=== PATIENT | male | born 1980 | race African-American/Black ===

== ENCOUNTER 2021-01-20 18:48 | Observation (INO) ==
[2021-01-20] MEDS ORDERED: SODIUM CHLORIDE 0.9% 1000ML 1,000 ML IV STA (20:10)
[2021-01-20] MEDS ORDERED: ONDANSETRON INJ 2 MG/ML 2 ML VIAL IV STA (20:10)
[2021-01-20 20:17] LABS: Basophils # (auto) 0.02 K/uL (0-0.2); Basophils % (auto) 0.2 %; Eosinophils % (auto) 1.1 %; Hematocrit (blood only) 46.2 % (42-52); Hemoglobin 15.7 g/dL (14.0-18.0); Immature Granulocytes # (auto) 0.02 K/uL (0.00-0.02); Immature Granulocytes % (auto) 0.2 %; Lymphocytes # (auto) 2.47 K/uL (1.2-3.4); Lymphocytes % (auto) 27.6 %; Mean Corpuscular Volume 88.2 fL (80-100); Mean Platelet Volume 10.1 fL (7.4-10.4); Monocytes # (auto) 0.81 K/uL (0.11-0.59); Monocytes % (auto) 9.1 %; Neutrophils # (auto) 5.52 K/uL (1.4-6.5); Neutrophils % (auto) 61.8 %; Platelet Count 181 K/uL (130-400); RDW Coefficient of Variation 13.2 % (11.5-14.5); RDW Standard Deviation 42.7 fL (36.4-46.3); Red Blood Count 5.24 M/uL (4.7-6.1); White Blood Count 8.94 K/uL (4.8-10.8)
[2021-01-20 20:29] LABS: Albumin Level 3.6 gm/dl (3.4-5.0); BUN Creatinine Ratio 7.8 (10-20); Calcium 9.2 mg/dl (8.5-10.1); Creatinine Clr Calc Pharmacy 92.3 ml/min; Est GFR (African American) 78.6 ml/min; Est GFR (Non-African American) 67.8 ml/min; Potassium 3.6 mmol/L (3.5-5.1)
[2021-01-20 20:31] LABS: Albumin Globulin Ratio 0.9 (0.9-2); Bilirubin,Total 0.8 mg/dl (0.2-1); Globulin 3.9 gm/dl (2.5-4.0); Total Protein 7.5 gm/dl (6.4-8.2)
[2021-01-20] MEDS ORDERED: OPTIRAY 320 100ml IV ONE (20:43)
[2021-01-20] MEDS ORDERED: diphenhydrAMINE 50 MG/ML VIAL IV STA (21:17)
[2021-01-20] MEDS ORDERED: FAMOTIDINE 20MG IV PUSH 20 MG/5 ML SYR IV STA (21:17)
[2021-01-20] MEDS ORDERED: methylPREDNISolone 125 MG/2 ML VIAL IV STA (21:17)
[2021-01-20] MEDS ORDERED: diphenhydrAMINE 50 MG/ML VIAL ONE (21:18)
[2021-01-20] MEDS ORDERED: FAMOTIDINE 20MG/5ML IV PUSH IV ONE (21:18)
[2021-01-20] MEDS ORDERED: methylPREDNISolone 125 MG/2 ML VIAL ONE (21:18)
[2021-01-20] MEDS ORDERED: EPINEPHrine INJ 1 MG/ML AMP IM STA (21:20)
[2021-01-20 21:58] LABS: Appearance Urine Clear (Clear); Bilirubin Urine Negative (Negative); Blood Urine Negative (Negative); Color Urine Yellow; Glucose Urine UA Negative (Negative); Ketones Urine Negative (Negative); Leukocyte Esterase Urine Negative (Negative); Nitrite Urine Negative (Negative); Protein Urine Negative (Negative); Specific Gravity Urine 1.018 (1.000-1.030); Urobilinogen Urine Negative (Negative)
[2021-01-20] MEDS ORDERED: AMPICILLIN/SULBACTAM SOD 3,000 MG in 0.9 % SODIUM CHLORIDE 100 ML IV STA (23:30)
--- NOTE | 2021-01-20 23:40 | Emergency Department Note ---
Impression & Plan Diverticulitis, Anaphylaxis ED Provider Note INFORMANT: Patient ED PROVIDER(S): Garry Dee MD CHIEF COMPLAINT: Right-sided abdominal pain PLAN: Disposition: Admitted Condition: Good Outpatient prescription management: none Referral: None MEDICAL DECISION MAKING: Patient presented because of right-sided abdominal pain. Blood work was obtained and was unremarkable. Patient declined analgesia. He was did and given Zofran initially because he had nausea and he did feel better with this. The patient underwent CT imaging and it revealed right sided cecal diverticulitis without perforation or abscess. Unfortunate the patient had an anaphylactic reaction to the IV dye. He has never had any reactions like this before. The patient was not allergic to any medications or anything else. He was attended to promptly. The patient was given IV Benadryl, IV Pepcid, and IV Solu-Medrol. He was noted to have moderate swelling of the uvula. He was given a dose of IM epinephrine. He was monitored. He has improved somewhat but still has some mild uvular swelling and congestion. His diffuse urticaria has improved. Facial swelling has diminished. He will need to be observed overnight in the hospital secondary to his severe reaction. Patient was given IV Unasyn for his diverticulitis. [facility] patient ER admitted for further management. Triage Nursing notes reviewed and agree them. Vital Signs: reviewed and remarkable for no significant abnormalities Differential diagnosis: Appendicitis, testicular torsion, infections, diverticulitis, UTI, obstruction, mesenteric ischemia, aortic pathology, inflammatory bowel disease, renal colic, PUD, pancreatitis, biliary pathology, hernia, volvulus, constipation, as well as other pathologies. Diagnostics interpreted by me: ECG: none Cardiac Monitoring: Cardiac monitoring ordered by me: The patient was placed on continuous cardiac monitoring and observed. It revealed a normal sinus rhythm at 95 beats per minute without ectopy or evidence of dysrhythmia. Imaging studies: CT imaging consistent with cecal diverticulitis. HPI: The patient is a 40 year old male who presents to the Emergency Room with complaints of right-sided abdominal pain. This started this morning and is persisting. The patient also notes the following associated symptoms, nausea. The patient has found no relieving factors. Current pain is rated as 5/10. No prior history of the same. Pt denies LOC, headache, fevers, chills, diaphoresis, visual changes, neck pain, chest pain, breathing difficulties, vomiting, back pain, melena, hematochezia, urinary symptoms, numbness, weakness, lymphadenopathy, rash, or other complaints. ROS: See above HPI for pertinent positives & negatives. A total of 10 systems reviewed and were otherwise negative. PAST MEDICAL HISTORY:See Below , prostate hypertrophy PAST SURGICAL HISTORY:See Below, hernia repair FAMILY HISTORY:See Below SOCIAL HISTORY:See Below, smoker HOME MEDICATIONS:See Below ALLERGIES:See Below VITALS:See Below PHYSICAL EXAMINATION: GENERAL: Awake, alert, well-appearing, in no distress HENT: Normocephalic, atraumatic. Oropharynx unremarkable. EYES: Normal conjunctiva. Sclera non-icteric. NECK: Inspection normal. Non-tender. Supple. No nuchal rigidity. FROM. No masses. RESPIRATORY: Clear to auscultation. No wheezes. No rales. Normal respiratory effort. CARDIAC: Normal rate. Normal rhythm. No murmurs. No rubs. Extremities warm and well perfused. Pulses equal. No JVD. GI: Soft, non-distended. Right lower quadrant tenderness to palpation. No rebou nd or guarding. No masses. RECTAL: Deferred. MUSCULOSKELETAL: Atraumatic. Chest examination reveals no tenderness. The back is symmetrical on inspection without obvious abnormality. There is no CVA te nderness to palpation. No joint edema. LOWER EXTREMITIES: Calves are equal size bilaterally and non-tender. No edema. No discoloration. NEURO: Normal sensorium. No sensory or motor deficits noted. SKIN: No rash or jaundice noted. CRITICAL CARE: I have personally spent greater than 50 minutes of critical care time in the direct management of this patient. This includes bedside care, interpretation of diagnostic studies, and testing, discussion with consultants, patient, and family members, and other required patient management activities. These minutes are in excess of all separately billable procedures. Garry Dee MD Past Med/Surg History Social History Smoking Status: Current every day smoker Preferred Language: Yoruba Feels Safe at Home: Yes Allergies Allergies Allergy/AdvReac Type Severity Reaction Status Date / Time Iodinated Contrast Media Allergy Severe Anaphylaxis Verified 01/20/21 21:35 Home Meds Home Medications Medication Instructions Recorded Confirmed Super Beta Prostate 1 tab PO QAM 01/20/21 01/20/21 multivit,calc,mins-folic 240 1 tab PO QAM 01/20/21 01/20/21 mcg-vit K1 30 mcg-lycopene 300 mcg tablet (One-A-Day Men's Complete) tamsulosin 0.4 mg capsule (Flomax) 0.4 mg PO HS 01/20/21 01/20/21 Results & Data (ED) Vital Signs Vital Signs - 24 hr 01/20/21 19:23 01/20/21 21:15 01/20/21 21:30 Temperature 36.4 C L Temperature Source Temporal Artery Scan Pulse Rate 95 H 113 H 118 H Respiratory Rate 18 21 23 Respiratory Effort / Characteristics Non-Labored Spontaneous Respiratory Depth Normal Respiratory Pattern Regular Blood Pressure 148/96 H 111/58 L 115/84 Blood Pressure Mean 113 75 94 Blood Pressure Position Sitting Pulse Oximetry 98 97 95 Oxygen Delivery Method Room Air Sepsis Recent Fever Within 48 Hours No Sepsis New/Unexplained Change in Mental Status N/A Sepsis Action Taken by Nursing No Action Required 01/20/21 22:00 01/20/21 22:30 Temperature Temperature Source Pulse Rate 100 H 105 H Respiratory Rate 23 15 Respiratory Effort / Characteristics Respiratory Depth Respiratory Pattern Blood Pressure 149/84 H 163/86 H Blood Pressure Mean 105 111 Blood Pressure Position Pulse Oximetry 93 95 Oxygen Delivery Method Sepsis Recent Fever Within 48 Hours Sepsis New/Unexplained Change in Mental Status Sepsis Action Taken by Nursing Laboratory Data Result diagrams: 01/20/21 19:50 01/20/21 19:50 Lab Results 01/20/21 01/20/21 01/20/21 Range/Units 19:50 19:50 21:53 WBC 8.94 (4.8-10.8) K/uL RBC 5.24 (4.7-6.1) M/uL Hgb 15.7 (14.0-18.0) g/dL Hct 46.2 (42-52) % MCV 88.2 (80-100) fL MCH 30.0 (25-34) pg MCHC 34.0 (32-36) g/dL RDW Std Deviation 42.7 (36.4-46.3) fL RDW Coeff of Nata 13.2 (11.5-14.5) % Plt Count 181 (130-400) K/uL MPV 10.1 (7.4-10.4) fL Immature Gran % (Auto) 0.2 % Neut % (Auto) 61.8 % Lymph % (Auto) 27.6 % [place] % (Auto) 9.1 % Eos % (Auto) 1.1 % Baso % (Auto) 0.2 % Neut # (Auto) 5.52 (1.4-6.5) K/uL Lymph # (Auto) 2.47 (1.2-3.4) K/uL [place] # (Auto) 0.81 H (0.11-0.59) K/uL Eos # (Auto) 0.10 (0-0.5) K/uL Baso # (Auto) 0.02 (0-0.2) K/uL Immature Gran # (Auto) 0.02 (0.00-0.02) K/uL Sodium 140 (136-145) mmol/L Potassium 3.6 (3.5-5.1) mmol/L Chloride 106 (98-107) mmol/L Carbon Dioxide 29 (21-32) mmol/L Anion Gap 6.0 (3-11) BUN 10 (7-18) mg/dl Creatinine 1.30 (0.6-1.4) mg/dl Est Cr Clr Drug Dosing 92.3 ml/min Est GFR ( Amer) 78.6 ml/min Est GFR (Non-Af Amer) 67.8 ml/min BUN/Creatinine Ratio 7.8 L (10-20) Glucose 92 (70-99) mg/dl Calcium 9.2 (8.5-10.1) mg/dl Total Bilirubin 0.8 (0.2-1) mg/dl AST 15 (15-37) U/L ALT 28 (12-78) U/L Alkaline Phosphatase 86 (45-117) U/L Total Protein 7.5 (6.4-8.2) gm/dl Albumin 3.6 (3.4-5.0) gm/dl Globulin 3.9 (2.5-4.0) gm/dl Albumin/Globulin Ratio 0.9 (0.9-2) Lipase 192 (73-393) U/L Urine Color Yellow Urine Appearance Clear (Clear) Urine pH 6.0 (4.5-7.5) Ur Specific [place] 1.018 (1.000-1.030) Urine Protein Negative (Negative) Urine Glucose (UA) Negative (Negative) Urine Ketones Negative (Negative) Urine Blood Negative (Negative) Urine Nitrite Negative (Negative) Urine Bilirubin Negative (Negative) Urine Urobilinogen Negative (Negative) Ur Leukocyte Esterase Negative (Negative) Administered Medications Discontinued Medications Diphenhydramine HCl (Diphenhydramine 50 Mg/Ml Vial) 50 mg IV NOW STA Stop: 01/20/21 21:18 Last Admin: 01/20/21 21:19 Dose: 50 mg Documented by: [id number] Diphenhydramine HCl (Diphenhydramine 50 Mg/Ml Vial) Confirm Administered Dose 50 mg .ROUTE .STK-MED ONE Stop: 01/20/21 21:19 Last Admin: 01/20/21 21:32 Dose: Not Given Documented by: [id number] Epinephrine HCl (Epinephrine Inj 1 Mg/Ml Amp) 0.3 mg IM NOW STA Stop: 01/20/21 21:21 Last Admin: 01/20/21 21:23 Dose: 0.3 mg Documented by: [id number] Famotidine (Famotidine 20mg/5ml Iv Push) Confirm Administered Dose 20 mg IV .STK-MED ONE Stop: 01/20/21 21:19 Last Admin: 01/20/21 21:32 Dose: Not Given Documented by: [id number] Sodium Chloride (Nss 1000ml) 1,000 mls @ 999 mls/hr IV .Q1H1M STA Stop: 01/20/21 21:10 Last Infusion: 01/20/21 21:21 Dose: 0 mls/hr Documented by: [id number] Admin: 01/20/21 20:20 Dose: 999 mls/hr Documented by: [id number] Famotidine (Pepcid 20mg Iv Push) 20 mg in 5 mls @ 2.5 mls/min IV NOW STA Stop: 01/20/21 21:18 Last Admin: 01/20/21 21:21 Dose: 2.5 mls/min Documented by: [id number] Ioversol (Optiray 320 100ml) 94 ml IV ONCE ONE Stop: 01/20/21 20:44 Last Admin: 01/20/21 20:43 Dose: 94 ml Documented by: [id number] Methylprednisolone (Methylprednisolone 125 Mg/2 Ml Vial) 125 mg IV NOW STA Stop: 01/20/21 21:18 Last Admin: 01/20/21 21:20 Dose: 125 mg Documented by: [id number] Methylprednisolone (Methylprednisolone 125 Mg/2 Ml Vial) Confirm Administered Dose 125 mg .ROUTE .STK-MED ONE Stop: 01/20/21 21:19 Last Admin: 01/20/21 21:32 Dose: Not Given Documented by: [id number] Ondansetron HCl (Ondansetron Inj 2 Mg/Ml 2 Ml Vial) 4 mg IV NOW STA Stop: 01/20/21 20:11 Last Admin: 01/20/21 20:20 Dose: 4 mg Documented by: [id number] Discharge Plan Visit Data Chief Complaint: Abdominal Pain Stated Complaint: STOMACH CRAMPS ON RIGHT SIDE ED Provider: Garry Dee Discharge Problem: Diverticulitis, Anaphylaxis Forms Stand Alone Forms: [facility] Prescriptions Prescriptions: No Action tamsulosin [Flomax] 0.4 mg capsule 0.4 mg PO HS RF: 0 One-A-Day Men's Complete 240 mcg-30 mcg- 300 mcg Tablet 1 tab PO QAM RF: 0 Super Beta Prostate 1 tab PO QAM RF: 0 Referrals Referrals: Idris Wei MD [Primary Care Provider] -
[2021-01-21 00:18] LABS: Magnesium 2.3 mg/dl (1.8-2.4); Thyroid Stimulating Hormone 0.868 uIu/ml (0.300-4.500)
--- NOTE | 2021-01-21 00:32 | History & Physical Report ---
Date of Service January 21, 2021 Assessment & Plan (1) Hypotension: Plan: Secondary to anaphylaxis from IV contrast dye Other symptoms from hypersensitivity reaction have improved post intervention at the ER. Right-sided diverticulitis on initial CT read No prior episodes as per patient, patient not septic BPH on Flomax Ongoing tobacco abuse PCU IVF Monitor for recurrent upper airway obstruction/biphasic anaphylaxis IM epinephrine, antihistaminic as needed Clear liquids, Zosyn for diverticulitis Outpatient GI consult for diverticulitis Nicotine replacement therapy as needed DVT prophylaxis. Lovenox subcu Full code Text document was generated using [employer] voice recognition software. It may contain grammatical or spelling errors. Kindly contact undersigned for clarification of any documentation item in question. History of Present Illness Chief Complaint: Abdominal pain Primary Care Provider: Idris Wei MD History obtained from patient, family, and records. Medical history significant for BPH, ongoing tobacco abuse. Yesterday morning patient woke up with achy right-sided pain with nausea symptoms. No fever, no chills. No constipation/diarrhea symptoms. Patient brought to the ER by last night. IV dye administered for CT abdomen pelvis study. Nausea/emesis symptoms following CAT scan. Patient noted sore throat/throat tightness, shortness of breath without chest pain or cough symptoms. Patient later noted to have facial swelling, eyelid puffiness, and hives. No prior history. IM epinephrine; IV Benadryl, Famotidine, Solu-Medrol for anaphylaxis. Unasyn given for diverticulitis on CT. Patient currently feeling much better. Facial swelling and hives resolved. SBP currently 90s. Medical History as above 2017 colonoscopy showed hyperplastic polyps Surgical History : Hernia surgery, subcutaneous fistula surgery Family History : Prostate cancer Personal/Social history : 3 cigarettes a day, occasional EtOH intake, [employer] employee Allergies Allergy/AdvReac Type Severity Reaction Status Date / Time Iodinated Contrast Media Allergy Severe Anaphylaxis Verified 01/20/21 21:35 Home Medications Medication Instructions Recorded Confirmed Type Super Beta Prostate 1 tab PO QAM 01/20/21 01/20/21 History multivit,calc,mins-folic 240 1 tab PO QAM 01/20/21 01/20/21 History mcg-vit K1 30 mcg-lycopene 300 mcg tablet (One-A-Day Men's Complete) tamsulosin 0.4 mg capsule (Flomax) 0.4 mg PO HS 01/20/21 01/20/21 History Past Med/Surg History Social History Smoking Status: Current some day smoker Hx Alcohol Use: Yes Alcohol type: beer and hard liquor Hx Substance Use: No Preferred Language: Beninese Communication Ability: Effective Contracts Paralegal Required: No Beliefs That Will Affect Care: None Current Living Situation: Spouse Other Information That Helps Us Care for You: No Feels Safe at Home: Yes Safety Concerns: Feels Safe At This Time Assistive Devices: Glasses Review of Systems Review of Systems: As per HPI, all 10 systems reviewed, all other ROS negative Physical Exam Physical Exam: GENERAL: Comfortable, obese, voice slightly muffled, no respiratory distress SKIN: Normal color, warm HEENT: Alopecia, [place] palpebral conjunctivae, no ptosis, dry buccal mucosa, mini mal pharyngeal wall congestion NECK : Supple, no tenderness CHEST : CTA, no tenderness HEART : RRR, no obvious murmurs ABDOMEN: Some distention, right-sided abdominal tenderness EXTREMITIES : No LE swelling/tenderness, no other conspicuous deformities noted NEUROLOGIC : Coherent, no facial asymmetry, no other gross focality Results & Data Results & Data ([facility]) Vital Signs (Past 12 Hours) Vital Signs Temp Pulse Resp BP Pulse Ox 01/21/21 00:00 94 H 21 92/63 L 95 01/20/21 23:30 95 H 19 122/72 94 01/20/21 22:30 105 H 15 163/86 H 95 01/20/21 22:00 100 H 23 149/84 H 93 01/20/21 21:30 118 H 23 115/84 95 01/20/21 21:15 113 H 21 111/58 L 97 01/20/21 19:23 36.4 C L 95 H 18 148/96 H 98 Laboratory Results Laboratory Results WBC 8.94 K/uL (4.8-10.8) 01/20/21 19:50 RBC 5.24 M/uL (4.7-6.1) 01/20/21 19:50 Hgb 15.7 g/dL (14.0-18.0) 01/20/21 19:50 Hct 46.2 % (42-52) 01/20/21 19:50 MCV 88.2 fL (80-100) 01/20/21 19:50 MCH 30.0 pg (25-34) 01/20/21 19:50 MCHC 34.0 g/dL (32-36) 01/20/21 19:50 RDW Std Deviation 42.7 fL (36.4-46.3) 01/20/21 19:50 RDW Coeff of Nata 13.2 % (11.5-14.5) 01/20/21 19:50 Plt Count 181 K/uL (130-400) 01/20/21 19:50 MPV 10.1 fL (7.4-10.4) 01/20/21 19:50 Immature Gran % (Auto) 0.2 % 01/20/21 19:50 Neut % (Auto) 61.8 % 01/20/21 19:50 Lymph % (Auto) 27.6 % 01/20/21 19:50 [place] % (Auto) 9.1 % 01/20/21 19:50 Eos % (Auto) 1.1 % 01/20/21 19:50 Baso % (Auto) 0.2 % 01/20/21 19:50 Neut # (Auto) 5.52 K/uL (1.4-6.5) 01/20/21 19:50 Lymph # (Auto) 2.47 K/uL (1.2-3.4) 01/20/21 19:50 [place]ie # (Auto) 0.81 K/uL (0.11-0.59) H 01/20/21 19:50 Eos # (Auto) 0.10 K/uL (0-0.5) 01/20/21 19:50 Baso # (Auto) 0.02 K/uL (0-0.2) 01/20/21 19:50 Immature Gran # (Auto) 0.02 K/uL (0.00-0.02) 01/20/21 19:50 Sodium 140 mmol/L (136-145) 01/20/21 19:50 Potassium 3.6 mmol/L (3.5-5.1) 01/20/21 19:50 Chloride 106 mmol/L (98-107) 01/20/21 19:50 Carbon Dioxide 29 mmol/L (21-32) 01/20/21 19:50 Anion Gap 6.0 (3-11) 01/20/21 19:50 BUN 10 mg/dl (7-18) 01/20/21 19:50 Creatinine 1.30 mg/dl (0.6-1.4) 01/20/21 19:50 Est Cr Clr Drug Dosing 92.3 ml/min 01/20/21 19:50 Est GFR ( Amer) 78.6 ml/min 01/20/21 19:50 Est GFR (Non-Af Amer) 67.8 ml/min 01/20/21 19:50 BUN/Creatinine Ratio 7.8 (10-20) L 01/20/21 19:50 Glucose 92 mg/dl (70-99) 01/20/21 19:50 Calcium 9.2 mg/dl (8.5-10.1) 01/20/21 19:50 Magnesium 2.3 mg/dl (1.8-2.4) 01/20/21 19:50 Total Bilirubin 0.8 mg/dl (0.2-1) 01/20/21 19:50 AST 15 U/L (15-37) 01/20/21 19:50 ALT 28 U/L (12-78) 01/20/21 19:50 Alkaline Phosphatase 86 U/L (45-117) 01/20/21 19:50 Total Protein 7.5 gm/dl (6.4-8.2) 01/20/21 19:50 Albumin 3.6 gm/dl (3.4-5.0) 01/20/21 19:50 Globulin 3.9 gm/dl (2.5-4.0) 01/20/21 19:50 Albumin/Globulin Ratio 0.9 (0.9-2) 01/20/21 19:50 Lipase 192 U/L (73-393) 01/20/21 19:50 TSH 0.868 uIu/ml (0.300-4.500) 01/20/21 19:50 Urine Color Yellow 01/20/21 21:53 Urine Appearance Clear (Clear) 01/20/21 21:53 Urine pH 6.0 (4.5-7.5) 01/20/21 21:53 Ur Specific [place] 1.018 (1.000-1.030) 01/20/21 21:53 Urine Protein Negative (Negative) 01/20/21 21:53 Urine Glucose (UA) Negative (Negative) 09/26/21 21:53 Urine Ketones Negative (Negative) 01/20/21 21:53 Urine Blood Negative (Negative) 01/20/21 21:53 Urine Nitrite Negative (Negative) 01/20/21 21:53 Urine Bilirubin Negative (Negative) 01/20/21 21:53 Urine Urobilinogen Negative (Negative) 01/20/21 21:53 Ur Leukocyte Esterase Negative (Negative) 01/20/21 21:53 COVID-19 Eval Order Covid19 at [facility] 01/20/21 23:[address] abdomen pelvis initial read: Bowel thickening of the cecumand proximal colon centered about a cecal diverticula (series 2, image 48), consistent with cecal diverticulitis. No evidence of complication. Diverticulosis coli. Normal appendix. Mildlypatulous fluid-filled distal esophagus CT soft tissue neck initial read: Equivocal vocal cord thickening, cannot rule out mild laryngitis. No cellulitis, cyst, abscess, mass or adenopathyin the neck. Limited evaluation on this noncontrast exam. Chest x-ray as per my interpretation borderline cardiomegaly, atelectasis EKG pending
[2021-01-21] MEDS ORDERED: LACTATED RINGER'S 1,000 ML IV STA (00:48)
[2021-01-21] MEDS ORDERED: KETOROLAC TROMETHAMINE 15 MG/ML VIAL IV PRN (02:09)
[2021-01-21] MEDS ORDERED: ACETAMINOPHEN 325 MG TAB PO PRN (02:09)
[2021-01-21] MEDS ORDERED: diphenhydrAMINE 50 MG/ML VIAL IV PRN (02:09)
[2021-01-21] MEDS ORDERED: IBUPROFEN 200 MG TAB PO PRN (02:09)
[2021-01-21] MEDS ORDERED: LORATADINE 10 MG TAB PO ONE (02:09)
[2021-01-21] MEDS ORDERED: PROMETHAZINE HCL 12.5 MG in SODIUM CHLORIDE 0.9% 50 ML IV PRN (02:09)
[2021-01-21] MEDS ORDERED: PIPERACILLIN/TAZOBACTAM 3.375 GM in DEXTROSE 5% 100 ML IV ONE (02:15)
[2021-01-21] MEDS ORDERED: LACTATED RINGER'S 1,000 ML IV ONE (03:00)
[2021-01-21 07:19] LABS: Eosinophils # (auto) 0.01 K/uL (0-0.5); Eosinophils % (auto) 0.1 %; Hematocrit (blood only) 46.7 % (42-52); Hemoglobin 15.3 g/dL (14.0-18.0); Immature Granulocytes # (auto) 0.03 K/uL (0.00-0.02); Immature Granulocytes % (auto) 0.3 %; Lymphocytes # (auto) 0.76 K/uL (1.2-3.4); Mean Corpuscular Hemoglobin 29.5 pg (25-34); Mean Corpuscular Hgb Conc 32.8 g/dL (32-36); Mean Corpuscular Volume 90.2 fL (80-100); Mean Platelet Volume 10.4 fL (7.4-10.4); Monocytes # (auto) 0.22 K/uL (0.11-0.59); Monocytes % (auto) 2.3 %; Neutrophils # (auto) 8.47 K/uL (1.4-6.5); Neutrophils % (auto) 89.3 %; Platelet Count 198 K/uL (130-400); RDW Coefficient of Variation 13.2 % (11.5-14.5); RDW Standard Deviation 43.5 fL (36.4-46.3); Red Blood Count 5.18 M/uL (4.7-6.1); White Blood Count 9.49 K/uL (4.8-10.8)
--- NOTE | 2021-01-21 07:21 | CT Scan Report ---
CT soft tissue neck wo con Clinical Indication: MN ^sore throat. Technique: Axial CT images of the soft tissues of the neck were obtained without intravenous administ ration. Automated dose lowering techniques and/or adjustment according to patient size were utilized for this exam. Comparison: None available at the time of this dictation. Findings: There is prominence of the pharyngeal soft tissues and mild prominence of the tonsils without periton sillar abscess. No enlarged lymph nodes are seen. The parotid glands, submandibular glands, and thy roid gland are unremarkable. The oropharynx, hypopharynx, larynx, and trachea are patent. Imaged portions of the brain parenchyma are unremarkable. A mucosal polyp is seen in the left maxill nakia sinus. The remainder of the sinuses and mastoid air cells are clear. Impression: Pharyngitis and tonsillitis without evidence of peritonsillar abscess. ACT 112: Negative or not required by law. Electronically signed by: Rom Malcolm M.D. 01/21/2021 7:20 AM
--- NOTE | 2021-01-21 07:37 | CT Scan Report ---
CT SCAN OF THE ABDOMEN AND PELVIS WITH IV CONTRAST CLINICAL HISTORY: Right lower quadrant abdominal pain COMPARISON STUDY: No priors. TECHNIQUE: Following the IV administration of 94 cc of Optiray 320, CT scan of the abdomen and pelvi s is performed from the lung bases to the proximal femora. Images are reviewed in the axial, sagittal , and coronal planes. IV contrast was administered without complication. A dose lowering technique wa s utilized adhering to the principles of ALARA. The Examination is degraded by motion artifact. CT DOSE: 510.31 mGy.cm FINDINGS: Lung bases: The heart is normal in size and without pericardial effusion. The lung bases are clear. T here is a tiny hiatal hernia. Liver: The contrast-enhanced liver is normal in size, contour, and attenuation. There is no intrahepa tic biliary ductal dilatation. The hepatic veins and portal veins are patent. Gallbladder: Contracted. Spleen: Normal in size and attenuation. Pancreas: Unremarkable. Adrenal glands: Unremarkable. Kidneys: The contrast enhanced kidneys are normal in size and without hydronephrosis. The kidneys enh ance symmetrically. Abdominal vasculature: The abdominal aorta is normal in course and caliber. Bowel: There is mild to moderate colonic diverticulosis. There is wall thickening with pericolonic in filtration and fluid involving the cecum consistent with acute diverticulitis. No organized fluid col lection is seen to suggest abscess. No bowel obstruction is identified. The appendix is well-visuali zed and normal. Question wall thickening of the third portion of the duodenum. Peritoneum: No intraperitoneal free air is seen. Trace free fluid is noted in the pelvis. Lymphadenopathy: There are mildly enlarged retroperitoneal lymph nodes. A gerald anchor did on image # 175 measures 3.0 x 2.0 cm. Pelvic viscera: The bladder is decompressed and grossly unremarkable. The prostate and seminal vesicl es are normal as visualized. Skeletal structures: No lytic or blastic lesions are seen. Mild sclerotic change is noted in the pubi c symphysis. IMPRESSION: 1. Mild to moderate colonic diverticulosis with evidence of acute cecal diverticulitis. 2. No intraperitoneal free air is identified and no organized fluid collection is seen to indicate ab scess. 3. Normal appendix. 4. There are enlarged retroperitoneal lymph nodes. Although these could be on reactive basis, these a re larger than expected. A follow-up abdominal CT scan in 1 to 2 months time is recommended for reeva luation. 5. Question duodenal wall thickening. Correlate clinically for evidence of duodenitis. This could als o be reassessed at follow-up. 6. Trace free fluid in the pelvis is likely reactive. ACT 112: Positive. There are findings on this exam that require communication between the performing entity and the patient following Patient Test Result Information Act ([place] Act 112) guidelines. Electronically signed by: Travis Perez M.D. 01/21/2021 7:36 AM
--- NOTE | 2021-01-21 07:40 | XRay Report ---
XR chest 1V portable INDICATION: MN ^sob. TECHNIQUE: Single frontal radiograph of the chest was obtained. Comparison: None available at the time of this dictation. FINDINGS: No lines and tubes are seen. The cardiomediastinal silhouette is normal. The lungs are clear. No evid ence of pleural effusion or pneumothorax. IMPRESSION: No acute chest disease. ACT 112: Negative or not required by law. Electronically signed by: Rom Malcolm M.D. 01/21/2021 7:39 AM
[2021-01-21 07:42] LABS: BUN Creatinine Ratio 6.6 (10-20); Calcium 9.5 mg/dl (8.5-10.1); Creatinine Clr Calc Pharmacy 79.8 ml/min; Est GFR (African American) 67.2 ml/min; Est GFR (Non-African American) 57.9 ml/min; Potassium 4.1 mmol/L (3.5-5.1)
[2021-01-21] MEDS ORDERED: PIPERACILLIN/TAZOBACTAM 3.375 GM in DEXTROSE 5% 100 ML IV SCH (08:00)
[2021-01-21] MEDS ORDERED: PIPERACILL/TAZOBAC CONSULT ACTIVE PRN (09:00)
[2021-01-21] MEDS ORDERED: [UNRECOGNIZED DRUG - OTHER] PO SCH (09:00)
[2021-01-21] MEDS ORDERED: ENOXAPARIN INJ 40 MG/0.4 ML SYR SQ SCH (09:00)
[2021-01-21] MEDS ORDERED: CIPROFLOXACIN 500 MG TAB PO SCH (14:55)
[2021-01-21] MEDS ORDERED: metroNIDAZOLE 500 MG TAB PO SCH (14:55)
--- NOTE | 2021-01-21 15:12 | Discharge Summary ---
Date of Service January 21, 2021 Admission HPI Per Admitting Provider History obtained from patient, family, and records. Medical history significant for BPH, ongoing tobacco abuse. Yesterday morning patient woke up with achy right-sided pain with nausea symptoms. No fever, no chills. No constipation/diarrhea symptoms. Patient brought to the ER by last night. IV dye administered for CT abdomen pelvis study. Nausea/emesis symptoms following CAT scan. Patient noted sore throat/throat tightness, shortness of breath without chest pain or cough symptoms. Patient later noted to have facial swelling, eyelid puffiness, and hives. No prior history. IM epinephrine; IV Benadryl, Famotidine, Solu-Medrol for anaphylaxis. Unasyn given for diverticulitis on CT. Patient currently feeling much better. Facial swelling and hives resolved. SBP currently 90s. 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 Admission Exam Per Admitting Provider GENERAL: Comfortable, obese, voice slightly muffled, no respiratory distress SKIN: Normal color, warm HEENT: Alopecia, [place] palpebral conjunctivae, no ptosis, dry buccal mucosa, min imal pharyngeal wall congestion NECK : Supple, no tenderness CHEST : CTA, no tenderness HEART : RRR, no obvious murmurs ABDOMEN: Some distention, right-sided abdominal tenderness EXTREMITIES : No LE swelling/tenderness, no other conspicuous deformities noted NEUROLOGIC : Coherent, no facial asymmetry, no other gross focality Principal Diagnosis Acute diverticulitis Allergic reaction with dye Discharge Exam General- No acute distress Head- atraumatic Eyes- PERRL, EOMI, ENT- oropharynx clear Neck- supple, no JVD Lungs- clear to auscultation Heart- regular rhythm; no murmur Abdomen- normal bowel sounds, soft, nontender Extremities- no calf tenderness Neuro- alert, oriented x 3; PERRL, EOMI; no facial palsy; no dysarthria Skin- warm & dry Discharge Data Allergies Allergy/AdvReac Type Severity Reaction Status Date / Time Iodinated Contrast Media Allergy Severe Anaphylaxis Verified 01/20/21 21:35 Consultations 01/20/21 23:31 ED Decision to Admit Stat Ordered Studies 01/20/21 20:10 CT abd pelvis IV con only Urgent 01/21/21 00:35 CT soft tissue neck wo con Urgent CT soft tissue neck wo con Clinical Indication: MN ^sore throat. Technique: Axial CT images of the soft tissues of the neck were obtained without intravenous administration. Automated dose lowering techniques and/or adjustment according to patient size were utilized for this exam. Comparison: None available at the time of this dictation. Findings: There is prominence of the pharyngeal soft tissues and mild prominence of the tonsils without peritonsillar abscess. No enlarged lymph nodes are seen. The parotid glands, submandibular glands, and thyroid gland are unremarkable. The oropharynx, hypopharynx, larynx, and trachea are patent. Imaged portions of the brain parenchyma are unremarkable. A mucosal polyp is seen in the left maxillary sinus. The remainder of the sinuses and mastoid air cells are clear. Impression: Pharyngitis and tonsillitis without evidence of peritonsillar abscess. ACT 112: Negative or not required by law. Electronically signed by: Rom Malcolm M.D. 01/21/2021 7:20 AM Dictated: 01/21/21 0710Transcribed: 01/21/21 0710 XR chest 1V portable INDICATION: MN ^sob. TECHNIQUE: Single frontal radiograph of the chest was obtained. Comparison: None available at the time of this dictation. FINDINGS: No lines and tubes are seen. The cardiomediastinal silhouette is normal. The lungs are clear. No evidence of pleural effusion or pneumothorax. IMPRESSION: No acute chest disease. ACT 112: Negative or not required by law. Electronically signed by: Rom Malcolm M.D. 01/21/2021 7:39 AM Dictated: 01/21/21 0739Transcribed: 01/21/[address] SCAN OF THE ABDOMEN AND PELVIS WITH IV CONTRAST CLINICAL HISTORY: Right lower quadrant abdominal pain COMPARISON STUDY: No priors. TECHNIQUE: Following the IV administration of 94 cc of Optiray 320, CT scan of the abdomen and pelvis is performed from the lung bases to the proximal femora. Images are reviewed in the axial, sagittal, and coronal planes. IV contrast was administered without complication. A dose lowering technique was utilized adhering to the principles of ALARA. The Examination is degraded by motion artifact. CT DOSE: 510.31 mGy.cm FINDINGS: Lung bases: The heart is normal in size and without pericardial effusion. The lung bases are clear. There is a tiny hiatal hernia. Liver: The contrast-enhanced liver is normal in size, contour, and attenuation. There is no intrahepatic biliary ductal dilatation. The hepatic veins and portal veins are patent. Gallbladder: Contracted. Spleen: Normal in size and attenuation. Pancreas: Unremarkable. Adrenal glands: Unremarkable. Kidneys: The contrast enhanced kidneys are normal in size and without hydronephrosis. The kidneys enhance symmetrically. Abdominal vasculature: The abdominal aorta is normal in course and caliber. Bowel: There is mild to moderate colonic diverticulosis. There is wall thickening with pericolonic infiltration and fluid involving the cecum consistent with acute diverticulitis. No organized fluid collection is seen to suggest abscess. No bowel obstruction is identified. The appendix is well- visualized and normal. Question wall thickening of the third portion of the duodenum. Peritoneum: No intraperitoneal free air is seen. Trace free fluid is noted in the pelvis. Lymphadenopathy: There are mildly enlarged retroperitoneal lymph nodes. A gerald anchor did on image #175 measures 3.0 x 2.0 cm. Pelvic viscera: The bladder is decompressed and grossly unremarkable. The prostate and seminal vesicles are normal as visualized. Skeletal structures: No lytic or blastic lesions are seen. Mild sclerotic change is noted in the pubic symphysis. IMPRESSION: 1. Mild to moderate colonic diverticulosis with evidence of acute cecal diverticulitis. 2. No intraperitoneal free air is identified and no organized fluid collection is seen to indicate abscess. 3. Normal appendix. 4. There are enlarged retroperitoneal lymph nodes. Although these could be on reactive basis, these are larger than expected. A follow-up abdominal CT scan in 1 to 2 months time is recommended for reevaluation. 5. Question duodenal wall thickening. Correlate clinically for evidence of duodenitis. This could also be reassessed at follow-up. 6. Trace free fluid in the pelvis is likely reactive. ACT 112: Positive. There are findings on this exam that require communication between the performing entity and the patient following Patient Test Result Information Act ([place] Act 112) guidelines. Electronically signed by: Travis Peerz M.D. 01/21/2021 7:36 AM Dictated: 01/21/21727Transcribed: 01/21/21727 Hospital Course (1) Diverticulitis: Present on admission with abdominal pain then developed allergy reaction after received contrast CT abd/pelvis showed mild to moderate colonic diverticulosis with evidence of acute cecal diverticulitis. There are enlarged retroperitoneal lymph nodes Currently on IV zosyn Will complete the course of the antibiotic with Cipro and Flagyl Follow up with gastroenterology in 6 to 8 weeks to evaluate for colonoscopy and repeat CT scan due to enlarge lymph node Continue low fiber diet Clinically improves (2) Anaphylaxis: (3) Allergy to intravenous contrast: Developed hypotension, facial swelling and hives after received IV contrast Soft tissue neck showed Pharyngitis and tonsillitis without evidence of peritonsillar abscess. Received IV steroid/benadryl and pepcid Symptoms improves Saturated well on RA Pt would like to go home Pt was advised to seek medical attention if he develops any shortness of breath Will give an epipen for emergency DVT px on Lovenox Disposition Will discharge home today Total Time Total Time Spent Total Time Spent (In Minutes): 35 minutes Discharge Plan Discharge Items Patient Disposition: Home - Self-Care Reason For Visit: ANAPHYLAXIS, LOW BP Discharge Diagnosis: Acute diverticulitis Allergic reaction with dye Activity: Resume your previous activity Non-emergency contact: Primary Care Provider and Project Management Engineer Call non-emergency contact if: you have any medication questions Follow-up/Referrals: Idris Wei MD [Primary Care Provider] - (Date & Time 01/25/2021 3:20 PM Provider Idris Wei MD Department [facility] ) Diet: Low Fiber Addtl Attending Provider Instructions: Follow up with your primary care provider with Dr. Wei on 01/25/2021 at 3:[address] [facility] Follow up with gastroenterology in 6 to 8 weeks to evaluate for colonoscopy Complete the course of the antibiotic with Cipro and flagyl Follow up a low fiber diet Seek medical attention if you develop any shortness of breath, worsening abdominal discomfort (Let your provider know that to add to your chart that you have an allergy with dye ) Pending Studies at Discharge: No Stand-Alone Forms: My [employer], Work/School Release, Smoking Cessation Medications and DC Order Prescriptions: New diphenhydramine HCl [Benadryl] 25 mg capsule 25 mg PO Q8H PRN (Reason: itching/throat discomfort/allergy reaction) Qty: 20 RF: 0 epinephrine [EpiPen] 0.3 mg/0.3 mL auto-injector 0.3 mg IM ONCE PRN (Reason: anaphylaxis) Qty: 1 RF: 0 Continued tamsulosin [Flomax] 0.4 mg capsule 0.4 mg PO HS RF: 0 One-A-Day Men's Complete 240 mcg-30 mcg- 300 mcg Tablet 1 tab PO QAM RF: 0 Super Beta Prostate 1 tab PO QAM RF: 0 Discharge Orders: Discharge Order (Routine); Ordered 01/21/21 Ordered By: Ann Hough/Other Patient Handouts: Low-Fiber Diet, Diverticulosis Diverticulitis Admission Data Admit Date/Time: 01/21/21 00:35 Attending Provider: Ann Stockton Admit Provider: Ranjit Lakhani Primary Care Provider: Idris Wei Other Providers: Ranjit Lakhani Other Interventions: Discharge Summary Assessment (RN) Last Done: 01/21/21 15:40
[2021-01-21] MEDS ORDERED: TAMSULOSIN HCL 0.4 MG CAP PO SCH (21:00)
--- NOTE | 2021-01-22 06:20 | Electrocardiogram Report ---
Test Reason : Blood Pressure : / mmHG Vent. Rate : 073 BPM Atrial Rate : 073 BPM P-R Int : 154 ms QRS Dur : 096 ms QT Int : 370 ms P-R-T Axes : 053 -02 -17 degrees QTc Int : 407 ms Normal sinus rhythm Voltage criteria for left ventricular hypertrophy Nonspecific ST and T wave abnormality Abnormal ECG No previous ECGs available Confirmed by Dandre Yu ([id number]) on 01/22/2021 6:20:27 AM Referred By: REFERRED SELF Confirmed By:Dandre Yu
== END 2021-01-21 17:06 | disposition home or self-care (01) | DRG 392 ==
LOC: ED 18:48 → 2S 01-21 00:35 → INTOOBSV 01-21 00:35 → 2S 01-21 01:50